=== PATIENT | male | born 1940 | race Caucasian/White ===

== ENCOUNTER 2018-02-17 20:21 | Emergency (ER) | payer MEDICARE, SELFPAY ==
[2018-02-17 20:23] VITALS: BP 152/64; PULSE 65; PULSE 66; RESP 17; RESP 18; TEMP 36.5; O2SAT 94; BMI 24.3
--- NOTE | 2018-02-17 20:34 | RAD_ITS ---
STUDY: X-RAY - LEFT KNEE REASON FOR EXAM: Male, 77 years old. Fall TECHNIQUE: 4 view(s) of the knee. COMPARISON: None. FINDINGS: Normal visualized distal femur. Normal visualized proximal tibia and fibula. Normal proximal tibiofibular articulation. There is mild degenerative arthrosis of the medial femorotibial compartment. There is mild degenerative arthrosis of the lateral femorotibial compartment. There is moderate degenerative arthrosis of the patellofemoral articulation. The soft tissue structures are unremarkable. RAD/Knee 4 or More Views IMPRESSION: Degenerative arthrosis. No fracture or dislocation. Electronically Signed: Luis Chaney DO at 22:16 EDT , Service support ,
--- NOTE | 2018-02-17 20:34 | CT_ITS ---
STUDY: CT BRAIN WITHOUT CONTRAST REASON FOR EXAM: Male, 77 years old. Fall, hit head RADIATION DOSAGE (If Supplied By Facility): CTDIvol = ( 44.99 ) mGy, DLP = ( 846.73 ) mGycm TECHNIQUE: Transaxial CT imaging of the brain was performed without administration of intravenous contrast material. Individualized dose optimization techniques were used for this CT. COMPARISON: None. FINDINGS: Normal soft tissue structures. Normal calvarium. There is mild cerebral atrophy with widening of the extra-axial spaces and ventricular dilatation. There are areas of decreased attenuation within the white matter tracts of the supratentorial brain, consistent with microvascular disease changes. Normal basal ganglia and thalami. Normal brainstem. Normal cerebellum. There is no intracranial hemorrhage. There are no findings of an acute ischemic infarction. Normal visualized paranasal sinuses. CT/Brain/Head without Contrast IMPRESSION: Chronic involutional changes of the brain. No acute intracranial process. Electronically Signed: Luis Chaney DO at 22:10 EDT , Service support ,
--- NOTE | 2018-02-17 20:36 | ED.VISSUMM ---
- ER Visit Summary Date of Service: 02/17/18 Chief Complaint: Head and knee pain History of Present Illness: The patient is a 77 M who was in the kitchen doing dishes when he developed a pain in his knee and fell to the ground. He hit the back of his head. He believes he bent his knee brace on his left knee. 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 Patient notes the knee is painful to move. His orthopedic surgeon who did his right hip at the end of last year is in [place]. Patient is on Coumadin for aortic valve replacement secondary to the aortic dissection. Physical Examination: Afebrile vital signs are stable Gen: Well-nourished well-developed Head: Normocephalic there is a small contusion noted in the occiput Eyes: Perrl EOMI ENT: TMs clear no rhinorrhea moist mucous membranes Neck: Supple no lymphadenopathy no JVD nontender CVS: Regular rate rhythm no murmurs normal S1-S2 Respiratory: No distress clear to auscultation bilaterally chest nontender Abdomen: Soft nontender nondistended normal bowel sounds no masses Back: Nontender Extremity: The left knee shows tenderness over the medial aspect of the knee particularly near the insertion of the MCL. There is minimal swelling. There is no joint effusion. Extensor mechanism is intact. Painful MCL testing. Skin: Normal color no rash Neuro: alert orientated ?3 CN II-XII intact normal strength sensation reflexes gait cerebellar Psych: Normal affect normal mood Test Results: CT the brain and x-rays of the knee were obtained. These were negative for acute. INR was obtained which was 2.9. Emergency Department Course and Treatment: She received Tylenol. We will place him back in his brace and he will use his cane or walker at home. He is to rest the knee and ice it. We will be treating this as a knee sprain/MCL strain. He is to schedule appointment with orthopedic surgeon in [place]. Return if worsening or concerns Impression: 1. Occipital scalp contusion 2. Right MCL strain 3. Coumadin coagulopathy This note was generated with [employer] dictation software. It may contain incorrect words, spelling, and punctuation that were not noted in review of the chart prior to signing ED Disposition - Plan for ED Patient: Disposition: Home or Assisted Living Chief Complaint: Fall Instructions: ED Sprain Knee Collateral Ligaments Additional Instructions: Call your orthopedic surgeon's office to arrange follow-up. Use cane or walker in addition to your brace.
[2018-02-17 21:13] LABS: International Normalized Ratio 2.9; Prothrombin Time (Protime)PT. 30.4 SECONDS (11.7-14.9)
[2018-02-17 23:08] VITALS: RESP 18
[2018-02-17] MEDS: Acetaminophen 500 MG Tablet 1000 MG PO (23:08)
== END 2018-02-17 23:09 | disposition home or self-care (01) ==
PROVIDERS: Emergency Provider Emergency Medicine; Family Provider Family Medicine; PCP Family Medicine
DX: S00.03XA Contusion of scalp, initial encounter (principal); S83.411A Sprain of medial collateral ligament of right knee, initial encounter; W18.30XA Fall on same level, unspecified, initial encounter; Y93.G1 Activity, food preparation and clean up; Y92.9 Unspecified place or not applicable; Z95.2 Presence of prosthetic heart valve; Z79.01 Long term (current) use of anticoagulants; I10 Essential (primary) hypertension; E78.00 Pure hypercholesterolemia, unspecified; Z79.899 Other long term (current) drug therapy
CPT/HCPCS: 70450; 73564; 85610; 99285; A4216

== ENCOUNTER 2018-02-19 21:17 | Emergency (ER) | payer MEDICARE, SELFPAY ==
[2018-02-19 21:17] VITALS: BP 141/64; PULSE 77; RESP 16; TEMP 37; O2SAT 97; BMI 21.7
--- NOTE | 2018-02-19 22:27 | RAD_ITS ---
STUDY: X-RAY - PELVIS REASON FOR EXAM: Male, 77 years old. Pain after fall TECHNIQUE: Two views of the pelvis were obtained. COMPARISON: None. FINDINGS: There is a non-specific bowel gas pattern. There are numerous phleboliths in the pelvis. There are moderate degenerative changes in the lower lumbar spine. There are degenerative changes in both sacroiliac joints. No abnormalities are seen in the visualized superior and inferior pubic rami. Normal appearing pubic symphysis. The visualized ischial tuberosities are unremarkable. There is a prosthesis in the proximal right femur. There is a prosthesis in the right acetabulum. There is adequate alignment of the prostheses. There is cortical disruption in the intertrochanteric region of the left femur. The left acetabulum shows no significant abnormalities. The left hip joint is normal in appearance. RAD/Pelvis 1 or 2 Views IMPRESSION: There is an acute comminuted fracture in the intertrochanteric region of the left femur. Electronically Signed: Monisha Diaz MD at 23:32 EDT Tel Direct: [phone], Service support ,
[2018-02-19] MEDS: fentaNYL 100 MCG/2 ML Ampul 12.5 MCG IV (22:45)
--- NOTE | 2018-02-19 23:01 | NURSING ---
87.5 MCG OF FENTANYL WASTED IN PT'S ROOM. WITNESSED BY Mick NEVES RN
--- NOTE | 2018-02-19 23:01 | RAD_ITS ---
STUDY: X-RAY CHEST REASON FOR EXAM: Male, 77 years old. Pain after fall, preoperative assessment TECHNIQUE: Frontal views of the chest were obtained. COMPARISON: None. FINDINGS: The lungs are hyperinflated. There are no focal airspace opacities. There is no demonstrated pleural abnormality. The cardiac silhouette is normal in size. There are surgical clips in the mediastinum. Sternotomy wires are present. There are prostheses in the aortic and mitral valves. Normal visualized pulmonary arteries. There is atherosclerotic calcification of the thoracic aorta. There are diffuse degenerative changes of the visualized spine. There is dextroscoliosis of the lower thoracic spine. There are old rib fractures on the right. There is no demonstrated abnormality of the visualized upper abdomen. RAD/Chest 1 View (Portable) IMPRESSION: No acute cardiopulmonary abnormalities. Hyperinflation suggests COPD. Electronically Signed: Monisha Diaz MD at 23:29 EDT Tel Direct: [phone], Service support ,
[2018-02-19 23:03] LABS: Absolute Lymphocyte Count 0.43 X10^3/ul (0.83-4.51); Absolute Neutrophil Count 7.8 X10^3/uL (2.0-7.7); Basophil# 0.01 X10^3/uL; Basophil% 0.1 % (0-1); Differential Indicated SCAN CRITERIA MET; Hematocrit 29.6 % (40-54); Hemoglobin 9.8 g/dl (13.0-16.5); Lymphocyte # 0.43 X10^3/ul (4.0); Lymphocyte % 4.8 % (19-41); Mean Corp Hgb Conc 33.1 g/gl (32-36); Mean Corpuscular Hgb 30.3 pg (27.0-32.0); Mean Corpuscular Volume 91.6 fL (80-94); Mean Platelet Vol. 10.1 fl (6.2-12.0); Monocyte# 0.74 X10^3/uL; Monocyte% 8.3 % (0-10); Neutrophil # 7.75 X10^3/uL (2.7-7.7); Neutrophil % 86.6 % (47-70); POSITIVE COUNT NO; POSITIVE DIFFERENTIAL YES; POSITIVE MORPHOLOGY NO; Platelet Count 137 K/mm3 (150-450); RBC Distribution Width CV 14.2 % (11.6-14.6); RBC Distribution Width SD 47.6 fl (35.1-43.9); Red Blood Count 3.23 M/mm3 (4.6-6.2)
[2018-02-19 23:04] LABS: International Normalized Ratio 3.3; Prothrombin Time (Protime)PT. 33.6 SECONDS (11.7-14.9)
--- NOTE | 2018-02-19 23:05 | RAD_ITS ---
STUDY: X-RAY - LEFT FEMUR REASON FOR STUDY: Male, 77 years old. Pain after fall TECHNIQUE: Frontal and lateral views of the femur were obtained. COMPARISON: None. FINDINGS: Bones: There is cortical disruption in the intertrochanteric region of the left femur. Joints: There are moderate degenerative changes in the left knee. Soft tissues: Vascular calcifications are present. RAD/Femur Min 2 Views IMPRESSION: There is an acute comminuted fracture in the intertrochanteric region of the left femur. Electronically Signed: Monisha Diaz MD at 23:34 EDT Tel Direct: [phone], Service support ,
[2018-02-19 23:08] LABS: Anion Gap 8 (5-15); BUN 46 mg/dL (7-18); BUN/Creat Ratio 30.3 RATIO (10-20); Calcium,Total 8.9 mg/dL (8.5-10.1); Chloride 107 mmol/L (98-107); Creatinine, Serum 1.52 mg/dL (0.70-1.30); EST Glomerular Filtration Rate 48 mL/min (>60); Est Glom Filt Rate - Afr Amer 58 mL/min (>60); Glucose 142 mg/dL (74-106); Potassium 5.4 mmol/L (3.5-5.1); Sodium Level 138 mmol/L (136-145)
[2018-02-19 23:22] LABS: Differential Comment SCANNED
[2018-02-19] MEDS: 0.9% Normal Saline 1,000 ML 150 ML IV (23:55)
--- NOTE | 2018-02-20 00:02 | ED.VISSUMM ---
- ER Visit Summary Date of Service: 02/20/18 Chief Complaint: Left leg pain History of Present Illness: The patient is a 77 M who had a fall at home on February 17. Patient was reportedly standing in his kitchen when his knee gave out and he fell. He injured his left knee. He was wearing a leg brace on the left leg at that time. Patient has complained of severe pain in the left knee with movement since the time of his fall. He was seen here the evening of his fall and had a head CT that was negative, left knee x-ray that was negative, and his INR was 2.9. Patient was seen by a PA today at [facility] where cortisone injection was placed in the left knee. Patient and realized tonight that they cannot safely care for him at home as he is not able to even stand and pivot to a bedside commode. Physical Examination: Vital signs are unremarkable. Patient sitting upright in bed no acute distress. Head neck examination reveals no external sign of trauma. Heart is regular rate and rhythm. Mechanical valve click is noted. Lung sounds are clear. Abdomen is soft nontender. Lower extremity examination reveals left thigh edema and tenderness to palpation from the hip through the left knee. He has strong distal pulses. He has decreased range of motion the left leg secondary to pain. Test Results: CBC was a hemoglobin 9.8 and a platelet count of 137,000. Chemistry studies reveal a potassium of 5.4 with hemolysis noted. BUN is 46 and creatinine is 1.52. INR is 3.3. Left femur and pelvis x-rays are obtained. There is an acute comminuted intertrochanteric fracture of the left hip. Chest x-ray reveals hyperinflation with no evidence of acute abnormalities. Emergency Department Course and Treatment: Patient has had problems with hallucinations with opiate medications in the past. He was given a small dose of IV fentanyl here and is resting comfortably. Patient has had a prior hip replacement on the right. Because of his mechanical valves and Coumadin use, that surgery was performed at [facility] where his environmental services aide were nearby. After discussion with patient and , they would prefer to go back to [place] for this injury where his environmental services aide can monitor his heart. Transfer line has been contacted. Treatment Plan: [] Disposition: Transfer Impression: 1. Left intertrochanteric hip fracture 2. 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 It may contain incorrect words, spelling, and punctuation that were not noted in review of the chart prior to signing ED Disposition - Plan for ED Patient: Chief Complaint: Lower Extremity Injury Referrals: Neville Sher MD [Primary Care Provider] -
--- NOTE | 2018-02-20 00:05 | ED.DCSUM_ITS ---
- ER Visit Summary Date of Service: 02/20/18 Chief Complaint: Left leg pain History of Present Illness: The patient is a 77 M who had a fall at home on February 17. Patient was reportedly standing in his kitchen when his knee gave out and he fell. He injured his left knee. He was wearing a leg brace on the left leg at that time. Patient has complained of severe pain in the left knee with movement since the time of his fall. He was seen here the evening of his fall and had a head CT that was negative, left knee x-ray that was negative, and his INR was 2.9. Patient was seen by a PA today at [facility] where cortisone injection was placed in the left knee. Patient and realized tonight that they cannot safely care for him at home as he is not able to even stand and pivot to a bedside commode. Physical Examination: Vital signs are unremarkable. Patient sitting upright in bed no acute distress. Head neck examination reveals no external sign of trauma. Heart is regular rate and rhythm. Mechanical valve click is noted. Lung sounds are clear. Abdomen is soft nontender. Lower extremity examination reveals left thigh edema and tenderness to palpation from the hip through the left knee. He has strong distal pulses. He has decreased range of motion the left leg secondary to pain. Test Results: CBC was a hemoglobin 9.8 and a platelet count of 137,000. Chemistry studies reveal a potassium of 5.4 with hemolysis noted. BUN is 46 and creatinine is 1.52. INR is 3.3. Left femur and pelvis x-rays are obtained. There is an acute comminuted intertrochanteric fracture of the left hip. Chest x-ray reveals hyperinflation with no evidence of acute abnormalities. Emergency Department Course and Treatment: Patient has had problems with hallucinations with opiate medications in the past. He was given a small dose of IV fentanyl here and is resting comfortably. Patient has had a prior hip replacement on the right. Because of his mechanical valves and Coumadin use, that surgery was performed at [facility] where his contact center team lead were nearby. After discussion with patient and , they would prefer to go back to [place] for this injury where his contact center team lead can monitor his heart. Transfer line has been contacted. Treatment Plan: [] Disposition: Transfer Impression: 1. Left intertrochanteric hip fracture 2. 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 It may contain incorrect words, spelling, and punctuation that were not noted in review of the chart prior to signing ED Disposition - Plan for ED Patient: Chief Complaint: Lower Extremity Injury Referrals: Neville Sher MD [Primary Care Provider] -
--- NOTE | 2018-02-20 00:32 | NURSING ---
REPORT CALLED TO CHARLOTTE PRYOR.
[2018-02-20 01:25] VITALS: BP 121/74; PULSE 106; RESP 16
== END 2018-02-20 01:15 | disposition short-term general hospital (02) ==
PROVIDERS: Emergency Provider Emergency Medicine; Family Provider Family Medicine; PCP Family Medicine
DX: S72.142A Displaced intertrochanteric fracture of left femur, initial encounter for closed fracture (principal); W18.30XA Fall on same level, unspecified, initial encounter; Y93.89 Activity, other specified; Y92.000 Kitchen of unspecified non-institutional (private) residence as the place of occurrence of the external cause; Z79.01 Long term (current) use of anticoagulants; Z95.4 Presence of other heart-valve replacement; I10 Essential (primary) hypertension; E78.00 Pure hypercholesterolemia, unspecified; Z79.82 Long term (current) use of aspirin; Z79.899 Other long term (current) drug therapy
CPT/HCPCS: 71045; 72170; 73552; 80048; 85025; 85610; 96361; 96374; 99285; J7030; A4216

== ENCOUNTER 2018-05-18 11:22 | Emergency (ER) | payer MEDICARE, SELFPAY ==
[2018-05-18 11:23] VITALS: BP 130/70; PULSE 61; RESP 18; TEMP 36.1; O2SAT 97; BMI 21.9
--- NOTE | 2018-05-18 12:00 | RAD_ITS ---
STUDY: X-RAY - PELVIS AND RIGHT HIP REASON FOR EXAM: Male, 78 years old. Fall. Right hip pain. TECHNIQUE: Radiological exam, hip, unilateral, with pelvis when performed; 1 view COMPARISON: Pelvis, February 19, 2018. FINDINGS: There is a non-specific bowel gas pattern. Normal visualized soft tissue structures. There are atherosclerotic vascular calcifications. Normal bilateral iliac wings, sacroiliac joints and visualized sacrum. Normal bilateral superior and inferior pubic rami. Normal pubic symphysis. Normal bilateral ischial tuberosities. There is interval internal fixation of the left intertrochanteric fracture seen on the previous study. There is a right artificial hip which appears unchanged in appearance from previous study. The prosthetic components are intact and articulate normally with the child. There is no loosening from the underlying bone. There is no evidence for acute fracture. RAD/Hip 2-3 Views with Pelvis IMPRESSION: 1. Stable right artificial hip without acute abnormality. 2. Interval internal fixation of a left intertrochanteric fracture when compared to the prior exam. 3. Stable appearance of the pelvis. Electronically Signed: Thierno Mejia DO at 12:21 EDT Tel [phone], Service support ,
[2018-05-18 12:32] LABS: International Normalized Ratio 2.9; Prothrombin Time (Protime)PT. 30.3 SECONDS (11.7-14.9)
--- NOTE | 2018-05-18 13:02 | ED.VISSUMM ---
- ER Visit Summary Date of Service: 05/18/18 Chief Complaint: Fall History of Present Illness: The patient is a 78 M with history of bilateral hip replacements. He is on Coumadin. Patient states he lost his balance coming out the front door of his home yesterday and landed on his porch. Right hip was swollen last night. This has somewhat improved after placing ice. He denies striking his head. He has not had a headache. He continues to have pain in the right hip with weightbearing only. Physical Examination: Vital signs are unremarkable. Patient sitting upright in bed in no acute distress. Head neck examination is unremarkable with no sign of trauma. Heart is regular. Valve click is heard. Lung sounds are clear. There is no chest wall tenderness. Abdomen is soft nontender. Right lower extremity examination reveals tenderness of the greater trochanter of the right hip. There is no significant edema at this time. He has full range of motion. There is no overlying ecchymosis. Upper extremity examination was abrasions of the anterior left forearm. Neuro exam is unremarkable. Test Results: Right hip and pelvis x-rays reveal no acute abnormality. Hardware is intact. INR is checked today and is 2.9. Emergency Department Course and Treatment: Left forearm wounds are cleansed and dressed. I am suspicious that he may have had some swelling of the bursal sac that has since improved. At this time I see no evidence of acute injury. Patient will continue his current medication regimen. Treatment Plan: [] Disposition: Discharge Impression: 1. Right hip contusion status post fall This note was generated with [employer] dictation software. It may contain incorrect words, spelling, and punctuation that were not noted in review of the chart prior to signing ED Disposition - Plan for ED Patient: Disposition: Home or Assisted Living Chief Complaint: Fall Instructions: ED Mechanical Fall, ED Contusion Hip Referrals: Neville Sher MD [Primary Care Provider] - As Needed
[2018-05-18 13:22] VITALS: BP 122/69; PULSE 50; RESP 18; O2SAT 97
[2018-05-18 13:23] VITALS: BP 122/69; PULSE 50; RESP 18; O2SAT 97
== END 2018-05-18 13:25 | disposition home or self-care (01) ==
PROVIDERS: Emergency Provider Emergency Medicine; Family Provider Family Medicine; PCP Family Medicine
DX: S70.01XA Contusion of right hip, initial encounter (principal); W18.39XA Other fall on same level, initial encounter; Y93.01 Activity, walking, marching and hiking; Y92.008 Other place in unspecified non-institutional (private) residence as the place of occurrence of the external cause; I10 Essential (primary) hypertension; E78.00 Pure hypercholesterolemia, unspecified; K21.9 Gastro-esophageal reflux disease without esophagitis; Z96.643 Presence of artificial hip joint, bilateral; Z95.2 Presence of prosthetic heart valve; Z79.01 Long term (current) use of anticoagulants; Z79.82 Long term (current) use of aspirin; Z79.899 Other long term (current) drug therapy
CPT/HCPCS: 73502; 85610; 99282

== ENCOUNTER → 2018-07-24 09:37 | Outpatient (CLI) | payer MEDICARE, SELFPAY ==
[2018-07-24 12:00] LABS: Absolute Lymphocyte Count 0.55 X10^3/ul (0.83-4.51); Absolute Neutrophil Count 2.6 X10^3/uL (2.0-7.7); Basophil# 0.04 X10^3/uL; Eosinophil# 0.22 X10^3/uL; Eosinophils% 5.7 % (0-5); Hematocrit 43.8 % (40-54); Hemoglobin 14.3 g/dl (13.0-16.5); Lymphocyte # 0.55 X10^3/ul (4.0); Lymphocyte % 14.2 % (19-41); Mean Corp Hgb Conc 32.6 g/gl (32-36); Mean Corpuscular Hgb 30.2 pg (27.0-32.0); Mean Corpuscular Volume 92.6 fL (80-94); Mean Platelet Vol. 11.2 fl (6.2-12.0); Monocyte% 10.4 % (0-10); Neutrophil # 2.63 X10^3/uL (2.7-7.7); Neutrophil % 68.2 % (47-70); Platelet Count 165 K/mm3 (150-450); RBC Distribution Width CV 15.2 % (11.6-14.6); RBC Distribution Width SD 49.8 fl (35.1-43.9); Red Blood Count 4.73 M/mm3 (4.6-6.2); White Blood Count 3.9 K/mm3 (4.4-11.0)
[2018-07-24 12:02] LABS: Differential Indicated SCAN CRITERIA MET; POSITIVE COUNT NO; POSITIVE DIFFERENTIAL YES; POSITIVE MORPHOLOGY NO
[2018-07-24 12:37] LABS: Anion Gap 8 (5-15); BUN 27 mg/dL (7-18); BUN/Creat Ratio 22.9 RATIO (10-20); Calcium,Total 9.6 mg/dL (8.5-10.1); Chloride 106 mmol/L (98-107); Creatinine, Serum 1.18 mg/dL (0.70-1.30); EST Glomerular Filtration Rate 64 mL/min (>60); Est Glom Filt Rate - Afr Amer 77 mL/min (>60); Glucose 91 mg/dL (74-106); Iron 80 ug/dL (65-175); Potassium 4.5 mmol/L (3.5-5.1); Sodium Level 139 mmol/L (136-145); Thyroid Stim Hormone (TSH) 1.64 uIU/mL (0.358-3.74)
== END ==
PROVIDERS: Family Provider Family Medicine; PCP Family Medicine; Visit Provider Family Medicine
DX: D64.9 Anemia, unspecified (principal); I10 Essential (primary) hypertension; R53.83 Other fatigue
CPT/HCPCS: 36415; 80048; 83540; 84443; 85025

== ENCOUNTER → 2019-01-15 10:57 | Outpatient (CLI) | payer MEDICARE, SELFPAY ==
[2019-01-15 12:21] LABS: Absolute Lymphocyte Count 0.88 X10^3/ul (0.83-4.51); Absolute Neutrophil Count 2.7 X10^3/uL (2.0-7.7); Basophil# 0.02 X10^3/uL; Basophil% 0.5 % (0-1); Eosinophil# 0.34 X10^3/uL; Eosinophils% 7.9 % (0-5); Hematocrit 44.5 % (40-54); Hemoglobin 13.8 g/dl (13.0-16.5); Lymphocyte # 0.88 X10^3/ul (4.0); Lymphocyte % 20.4 % (19-41); Mean Corpuscular Hgb 29.4 pg (27.0-32.0); Mean Corpuscular Volume 94.9 fL (80-94); Monocyte# 0.39 X10^3/uL; Neutrophil # 2.69 X10^3/uL (2.7-7.7); Neutrophil % 62.2 % (47-70); Platelet Count 160 K/mm3 (150-450); RBC Distribution Width CV 14.9 % (11.6-14.6); RBC Distribution Width SD 51.8 fl (35.1-43.9); Red Blood Count 4.69 M/mm3 (4.6-6.2); White Blood Count 4.3 K/mm3 (4.4-11.0)
[2019-01-15 12:30] LABS: POSITIVE COUNT NO; POSITIVE DIFFERENTIAL NO; POSITIVE MORPHOLOGY NO
[2019-01-15 12:50] LABS: Vitamin B12 683 pg/mL (211-911)
[2019-01-17 01:31] LABS: Rapid Plasmin Reagin (RPR) NONREACTIVE (NONREACTIVE)
== END ==
PROVIDERS: Family Provider Family Medicine; PCP Family Medicine; Visit Provider Family Medicine
DX: F03.90 Unspecified dementia, unspecified severity, without behavioral disturbance, psychotic disturbance, mood disturbance, and anxiety (principal)
CPT/HCPCS: 36415; 82607; 84439; 84443; 85025; 86592

== ENCOUNTER → 2019-08-08 10:22 | Outpatient (CLI) | payer MEDICARE, SELFPAY ==
[2019-08-08 12:23] LABS: Absolute Lymphocyte Count 0.82 X10^3/uL (0.83-4.51); Absolute Neutrophil Count 2.4 X10^3/uL (2.0-7.7); Basophil# 0.05 X10^3/uL; Basophil% 1.2 % (0-1); Eosinophil# 0.31 X10^3/uL; Eosinophils% 7.6 % (0-5); Hematocrit 47.3 % (40-54); Lymphocyte # 0.82 X10^3/ul (4.0); Mean Corp Hgb Conc 31.7 g/dL (32-36); Mean Corpuscular Hgb 29.7 pg (27.0-32.0); Mean Corpuscular Volume 93.7 fL (80-94); Mean Platelet Vol. 10.8 fl (6.2-12.0); Monocyte# 0.46 X10^3/uL; Monocyte% 11.2 % (0-10); NRBC Flagged by Analyzer 0 % (0-5); Neutrophil # 2.44 X10^3/uL (2.7-7.7); Neutrophil % 59.8 % (47-70); Platelet Count 142 K/mm3 (150-450); RBC Distribution Width SD 47.9 fl (35.1-43.9); Red Blood Count 5.05 M/mm3 (4.6-6.2); White Blood Count 4.1 K/mm3 (4.4-11.0)
[2019-08-08 13:08] LABS: ALB/GLOB Ratio 1.2 RATIO (0.9-2.4); AST(SGOT) 31 U/L (15-37); Alanine Aminotransfer ALT/SGPT 33 U/L (16-61); Alkaline Phosphatase 59 U/L (45-117); Anion Gap 8 (5-15); BUN 26 mg/dL (7-18); BUN/Creat Ratio 22.6 RATIO (10-20); Calcium,Total 9.6 mg/dL (8.5-10.1); Chloride 107 mmol/L (98-107); Creatinine, Serum 1.15 mg/dL (0.70-1.30); EST Glomerular Filtration Rate 66 mL/min (>60); Est Glom Filt Rate - Afr Amer 79 mL/min (>60); Globulin 3.3 g/dL (2.2-4.2); Glucose 91 mg/dL (74-106); Potassium 4.5 mmol/L (3.5-5.1); Protein, Total 7.3 g/dL (6.4-8.2); Sodium Level 141 mmol/L (136-145); T4 Free Direct 0.79 ng/dL (0.76-1.46); Thyroid Stim Hormone (TSH) 1.74 uIU/mL (0.358-3.74)
== END ==
PROVIDERS: Family Provider Family Medicine; PCP Family Medicine; Visit Provider Family Medicine
DX: E78.5 Hyperlipidemia, unspecified (principal); F03.90 Unspecified dementia, unspecified severity, without behavioral disturbance, psychotic disturbance, mood disturbance, and anxiety; I10 Essential (primary) hypertension
CPT/HCPCS: 36415; 80053; 84439; 84443; 85025

== ENCOUNTER → 2019-11-21 07:48 | Outpatient (CLI) | payer MEDICARE, SELFPAY ==
[2019-11-21 11:42] LABS: International Normalized Ratio 2.5; Prothrombin Time (Protime)PT. 27.3 SECONDS (11.7-14.9)
== END ==
PROVIDERS: Family Provider Family Medicine; PCP Family Medicine; Referring Provider Family Medicine; Visit Provider Family Medicine
DX: Z79.01 Long term (current) use of anticoagulants (principal)
CPT/HCPCS: 36415; 85610

== ENCOUNTER → 2020-01-01 14:09 | Outpatient (CLI) | payer MEDICARE, SELFPAY ==
[2020-01-01 15:34] LABS: Prothrombin Time (Protime)PT. 31.7 SECONDS (11.7-14.9)
== END ==
PROVIDERS: PCP Family Medicine; Visit Provider Family Medicine
DX: Z79.01 Long term (current) use of anticoagulants (principal)
CPT/HCPCS: 36415; 85610

== ENCOUNTER 2020-02-24 15:13 | Outpatient (RCR) | payer MEDICARE, SELFPAY ==
[2020-02-24 17:36] LABS: Prothrombin Time (Protime)PT. 47.6 SECONDS (11.7-14.9)
[2020-02-24 17:53] LABS: International Normalized Ratio 5.1
[2020-02-27 12:25] LABS: International Normalized Ratio 1.4; Prothrombin Time (Protime)PT. 16.3 SECONDS (11.7-14.9)
== END 2020-03-11 18:00 | disposition home or self-care (01) ==
LOC: MTLAB 15:13
PROVIDERS: PCP Family Medicine; Referring Provider Family Medicine; Visit Provider Family Medicine
DX: I35.9 Nonrheumatic aortic valve disorder, unspecified (principal)
CPT/HCPCS: 36415; 85610

== ENCOUNTER 2020-03-17 10:09 | Outpatient (RCR) | payer MEDICARE, SELFPAY ==
[2020-03-17 12:15] LABS: International Normalized Ratio 3.1; Prothrombin Time (Protime)PT. 31.7 SECONDS (11.7-14.9)
== END 2020-03-17 18:00 | disposition home or self-care (01) ==
LOC: MTLAB 10:09
PROVIDERS: PCP Family Medicine; Referring Provider Family Medicine; Visit Provider Family Medicine
DX: I35.9 Nonrheumatic aortic valve disorder, unspecified (principal)
CPT/HCPCS: 36415; 85610

== ENCOUNTER 2020-04-20 10:41 | Outpatient (RCR) | payer MEDICARE, SELFPAY ==
[2020-04-20 12:20] LABS: International Normalized Ratio 3.3; Prothrombin Time (Protime)PT. 33.5 SECONDS (11.7-14.9)
== END 2020-04-20 18:00 | disposition home or self-care (01) ==
LOC: MTLAB 10:41
PROVIDERS: PCP Family Medicine; Referring Provider Family Medicine; Visit Provider Family Medicine
DX: I35.9 Nonrheumatic aortic valve disorder, unspecified (principal)
CPT/HCPCS: 36415; 85610

== ENCOUNTER 2020-09-02 11:28 | Outpatient (RCR) | payer MEDICARE, SELFPAY ==
[2020-09-02 16:26] LABS: International Normalized Ratio 1.4; Prothrombin Time (Protime)PT. 16.5 SECONDS (11.7-14.9)
== END 2020-09-11 23:59 ==
LOC: BFHLAB 11:28
PROVIDERS: PCP Family Medicine; Referring Provider Family Medicine; Visit Provider Family Medicine
DX: I35.9 Nonrheumatic aortic valve disorder, unspecified (principal)
CPT/HCPCS: 36415; 85610

== ENCOUNTER 2020-10-21 21:25 | Emergency (ER) | payer MEDICARE, SELFPAY ==
[2020-10-21 21:26] VITALS: BP 96/78; PULSE 64; PULSE 65; RESP 16; RESP 18; TEMP 36.9; O2SAT 95; O2SAT 96; BMI 24.8
--- NOTE | 2020-10-21 22:10 | RAD_ITS ---
STUDY: X-RAY CHEST REASON FOR EXAM: Male, 80 years old. weakness -- s/p fall TECHNIQUE: Single AP portable view of the chest. 2 images COMPARISON: 02/19/2018 FINDINGS: There are superimposed monitor leads. There is no demonstrated pneumothorax. There is hyperinflation of the lungs consistent with chronic obstructive lung disease (COPD). Linear basilar interstitial changes, likely atelectasis. There is no demonstrated pleural abnormality. Sternal cerclage wires and vascular clips are present from a prior sternotomy, valve replacement and coronary artery bypass graft procedure (CABG). Normal mediastinum and sharif. Normal visualized pulmonary arteries. There is atherosclerotic calcification of the aortic arch with tortuosity. There is demineralization of the osseous structures. There is degenerative osteoarthritis of the bilateral shoulders. Remote rib injuries of the right posterior hemithorax. Partially imaged inferior vena cava filter and presumed cholecystectomy. RAD/Chest 1 View (Portable) IMPRESSION: Stable COPD, postsurgical changes, osteopenia. Minimal atelectasis in the left base. There is no demonstrated pneumothorax. Electronically Signed: Kamla Hickey MD at 23:59 EST , Service support ,
--- NOTE | 2020-10-21 22:10 | CT_ITS ---
STUDY: CT BRAIN WITHOUT CONTRAST REASON FOR EXAM: Male, 80 years old. FELL AT 1400, HIT BACK OF HEAD, ON COUMADIN, PT HAS SEVERE BUNN, PT MENTAL STATUS IS DECREASED RADIATION DOSAGE (If Supplied By Facility): CTDIvol = ( 44.99 ) mGy, DLP = ( 880.47 ) mGycm TECHNIQUE: Transaxial CT imaging of the brain was performed without administration of intravenous contrast material. Individualized dose optimization techniques were used for this CT. COMPARISON: CT brain noncontrast 02/17/2018. FINDINGS: Normal soft tissue structures. Normal calvarium. There is an acute intracranial hemorrhage in the left subdural space with a width of 1.4 cm, right frontal subdural hemorrhage and 0.4 cm, significant hemorrhage along the right greater than left falx, right with at least 1.2 cm. There is significant mass effect on the left cerebrum with shift to the right by 1.2 cm to 1.3 cm. The right ventricle is narrowed as well. The basilar cisterns are patent. No overt intraparenchymal or intraventricular hemorrhage. Normal basal ganglia and thalami. Normal brainstem. Normal cerebellum. There are no findings of an acute ischemic infarction. Normal visualized paranasal sinuses. The bilateral mastoid air cells and ossicles are unopacified. 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 CT/Brain/Head without Contrast IMPRESSION: Extensive extra-axial hemorrhages in the subdural spaces left greater than right with shift to the right as above. These findings were discussed on the telephone with Dr. BHATIA at 0010 hrs. EST on 10/22/2020. Electronically Signed: Kamla Hickey MD at 0:15 EST , Service support ,
--- NOTE | 2020-10-21 22:10 | ED.DCSUM_ITS ---
History of Present Illness <Real Onofre - Last Filed: 10/22/20 00:03> Onset: Today Narrative: 80-year-old male presenting with headache after mechanical fall happened today at 2 PM. Patient is on Coumadin chronically. He states he did not lose consciousness. He presents to the ER several hours after falling hitting his head. He states that he just feels lousy and he has a headache. He states he has not had any fever, chills, nausea, vomiting. He has no exposure to COVID- 19. <DiazNiravJaxon - Last Filed: 10/22/20 00:51> Chief Complaint: Head Injury Past Medical History <Real Onofre - Last Filed: 10/22/20 00:03> Past Medical History: - - Hyperlipidemia, hypertension Surgical History: noncontributory Lives: Spouse/ Significant Other Smoking Status: Never smoker Alcohol: None Drugs: None <DiazNiravJaxon - Last Filed: 10/22/20 00:51> - Allergies and Home Meds Allergies/Adverse Reactions: Allergies No Known Allergies Allergy (Verified 05/18/18 11:25) Primary Care Physician: Neville Sher MD [Primary Care Provider] - Review of Systems General: Denies: Chills, Fever, Sweats Eyes: Denies: Visual changes - bilaterally, Diplopia ENT: Denies: Rhinorrhea, Sore throat Cardiovascular: Denies: Chest pain, Palpitations Respiratory: Denies: Dyspnea, Cough, Dyspnea on exertion Genitourinary: Denies: Dysuria, Hematuria, Frequency Musculoskeletal: Denies: Back pain, Extremity Pain Skin: Denies: Rash, Wounds Neurological: Reports: Headache. Denies: Parasthesia, Numbness Psych: Denies: Depression, Anxiety <DiazNiravJaxon - Last Filed: 10/22/20 00:51> Physical Exam Vital Signs/Narrative: Vital Signs Temp Pulse Resp BP Pulse Ox 10/21/20 21:26 98.5 F 64 16 96/78 95 <Real Onofre - Last Filed: 10/22/20 00:03> Vital Signs/Narrative: Vital Signs Temp Pulse Resp BP Pulse Ox 10/21/20 21:26 98.5 F 64 16 96/78 95 General: Well nourished, No Acute Distress Head: Normocephalic, Atraumatic Eyes: Perrl, EOMI. Negative for: Pale conjunctiva ENT: Moist mucous membranes. Negative for: No rhinorrhea Cardiovascular: Regular rate, Regular rhythm Respiratory: No distress, CTA bilaterally Abdomen: Soft, Nontender Back: Nontender Extremities: Nontender, No edema Skin: Normal color, No rash. Negative for: Diaphoresis, Pallor Neurological: Alert, Oriented x3, Cranial nerves II-XII grossly intact Psychological: Agitated <Jaxon Bhatia - Last Filed: 10/22/20 00:51> Diagnostic/Tx/Re-eval - Medical Decision Making Patient returned from radiology suite. He is no longer verbal. He is not moving his right side. Occasionally spasm noted of the quadricep muscle and attempt to move right hand. GCS is 10. He does localize to pain on the left side only. Patient received 20 of etomidate and rocuronium. He was easily orotracheally debated with a 7.5 endotracheal tube using glide scope. This was performed successfully on first pass. Breath sounds noted bilaterally, but diminished. Appropriate color change on capnometer. Khoury was ordered, OG was ordered. Dr. Bhatia is speaking with the trauma service at [facility] where relatives wanted him transferred since he had coronary bypass surgery. Because of the rapid deterioration patient received mannitol 1 g/kg. Patient did receive 10 mg of vitamin K IV push. Kcentra was ordered with the presumption his INR is less than 4. Helicopter was contacted. Procedure: 1. Rapid sequence intubation using glide scope, 7.5 [place] endotracheal tube 2. Khoury indwelling for accurate I's and O's 3. OG per nursing staff for decompression of stomach <Real Onofre - Last Filed: 10/22/20 00:03> Clinical Impression(s) from Imaging Studies Brain CT 10/21/20 22:10 IMPRESSION: Extensive extra-axial hemorrhages in the subdural spaces left greater than right with shift to the right as above. These findings were discussed on the telephone with Dr. BHATIA at 0010 hrs. EST on 10/22/2020. Electronically Signed: Kamla Hickey MD at 0:15 EST , Service support , Chest X-Ray 10/21/20 22:10 IMPRESSION: Stable COPD, postsurgical changes, osteopenia. Minimal atelectasis in the left base. There is no demonstrated pneumothorax. Electronically Signed: Kamla Hickey MD at 23:59 EST , Service support , Laboratory Data 10/21/20 10/21/20 10/21/20 23:16 23:23 23:23 WBC 9.2 RBC 4.47 L Hgb 13.9 Hct 41.6 MCV 93.1 MCH 31.1 MCHC 33.4 RDW Std Deviation 46.8 H RDW Coeff of Giselle 13.7 Plt Count 151 MPV 10.3 Immature Gran % (Auto) 0.400 Neut % (Auto) 79.7 H Lymph % (Auto) 8.0 L [place] % (Auto) 8.4 Eos % (Auto) 2.8 Baso % (Auto) 0.7 Absolute Neuts (auto) 7.3 Absolute Lymphs (auto) 0.73 L Nucleated RBC % 0 PT INR APTT Sodium 143 Potassium 3.8 Chloride 111 H Carbon Dioxide 28.0 Anion Gap 4 L BUN 27 H Creatinine 1.16 Estim Creat Clear Calc 61.02 Est GFR (MDRD) Af Amer 78 Est GFR (MDRD) Non-Af 65 BUN/Creatinine Ratio 23.3 H Glucose 110 H Calcium 9.2 Urine Color Yellow Urine Clarity Clear Urine pH 6.5 Ur Specific [place] 1.015 Urine Protein Negative Urine Glucose (UA) Normal Urine Ketones Negative Urine Occult Blood 10 H Urine Nitrite Negative Urine Bilirubin Negative Urine Urobilinogen Normal Ur Leukocyte Esterase Negative Urine RBC 0 SEEN Urine WBC 0 SEEN Ur Squamous Epith Cells 0 SEEN Urine Bacteria 0 SEEN Urine Mucus 0 SEEN Ethyl Alcohol 10/21/20 10/21/20 23:25 23:55 WBC RBC Hgb Hct MCV MCH MCHC RDW Std Deviation RDW Coeff of Giselle Plt Count MPV Immature Gran % (Auto) Neut % (Auto) Lymph % (Auto) [place] % (Auto) Eos % (Auto) Baso % (Auto) Absolute Neuts (auto) Absolute Lymphs (auto) Nucleated RBC % PT 27.6 H INR 2.6 APTT 29.7 Sodium Potassium Chloride Carbon Dioxide Anion Gap BUN Creatinine Estim Creat Clear Calc Est GFR (MDRD) Af Amer Est GFR (MDRD) Non-Af BUN/Creatinine Ratio Glucose Calcium Urine Color Urine Clarity Urine pH Ur Specific [place] Urine Protein Urine Glucose (UA) Urine Ketones Urine Occult Blood Urine Nitrite Urine Bilirubin Urine Urobilinogen Ur Leukocyte Esterase Urine RBC Urine WBC Ur Squamous Epith Cells Urine Bacteria Urine Mucus Ethyl Alcohol < 3.0 - Rhythm Strip Rhythm Strip: Sinus Rhythm Rate: 74 - EKG Initial EKG Interpretation: Sinus Rhythm, No Acute Injury Pattern, AV Block - First-degree - Medical Decision Making Patient presents with normal mental status after hitting his head several hours ago. His exam was fairly unremarkable except for he did seem slightly confused and angry. There were no visual signs of trauma. Patient had labs and imaging ordered. His initial EKG is sinus rhythm with first-degree AV block without any ischemic changes as interpreted by myself. Chest x-ray shows no acute process as read by the radiologist and myself. After patient returned from CT he was acutely altered with a GCS of 10. I did review the CT prior to radiology read and noted that there is a large areas of subdural hematoma. Given the patient is acutely altered I did elect to intubate the patient. See procedure note above. Discussed with [facility] who accepted trauma transfer by . Impression: 1. Mechanical fall 2. Acute subdural hemorrhage - Critical Care Time Critical care time (excluding procedures): 30-74 minutes, Discussing w/Patient &/or Family/Shift Superintendent, Discussing w/Consultants, Arranging Admission or Transfer, Performing Direct Patient Care at Bedside <Jaxon Bhatia - Last Filed: 10/22/20 00:51> ED Disposition <Real Onofre - Last Filed: 10/22/20 00:03> <Jaxon Bhatia - Last Filed: 10/22/20 00:51> - Plan for ED Patient: Referrals: Neville Sher MD [Primary Care Provider] -
--- NOTE | 2020-10-21 22:11 | EKG12_ITS ---
Test Reason : DYSRHYTHMIA Blood Pressure : / mmHG Vent. Rate : 074 BPM Atrial Rate : 074 BPM P-R Int : 230 ms QRS Dur : 138 ms QT Int : 430 ms P-R-T Axes : 082 -17 051 degrees QTc Int : 477 ms Sinus rhythm with 1st degree A-V block Non-specific intra-ventricular conduction block Abnormal ECG Confirmed by BLOSSOM YIP, LUIS ([id number]), editor book DANA MURPHY ([id number]) on 10/22/2020 2:18:00 PM Referred By: TEMO Confirmed By:LUIS CERRATO MD
[2020-10-21 23:23] LABS: Bacteria 0 SEEN /hpf (None Seen); Color, Urine Yellow (Yellow); Glucose, Dipstick Normal (Normal); Ketone-Dipstick Negative (Negative); Leukocyte Esterase-Dipstick Negative /ul (Negative); Mucous, Urine 0 SEEN /hpf (<or=2+); Nitrite-Dipstick Negative (Negative); Occult Blood-Urine 10 /ul (Negative); Protein-Dipstick Negative (Negative); Red Blood Cells-Urine 0 SEEN /hpf (0-5); Specific Gravity, Urine 1.015 (1.002-1.030); Squamous Epithelial Cells - UA 0 SEEN /hpf (0-5); Urine Bilirubin Dipstick Negative (Negative); Urine Clarity Clear (Clear); Urine Urobilinogen Normal (Normal); Urine pH 6.5 (5.0 - 8.0); White Blood Cells 0 SEEN /hpf (0-5)
[2020-10-21 23:43] LABS: Absolute Lymphocyte Count 0.73 X10^3/uL (0.83-4.51); Absolute Neutrophil Count 7.3 X10^3/uL (2.0-7.7); Basophil# 0.06 X10^3/uL; Basophil% 0.7 % (0-1); Eosinophil# 0.26 X10^3/uL; Eosinophils% 2.8 % (0-5); Hematocrit 41.6 % (40-54); Hemoglobin 13.9 g/dL (13.0-16.5); Lymphocyte # 0.73 X10^3/ul (4.0); Mean Corp Hgb Conc 33.4 g/dL (32-36); Mean Corpuscular Hgb 31.1 pg (27.0-32.0); Mean Corpuscular Volume 93.1 fL (80-94); Mean Platelet Vol. 10.3 fl (6.2-12.0); Monocyte# 0.77 X10^3/uL; Monocyte% 8.4 % (0-10); NRBC Flagged by Analyzer 0 % (0-5); Neutrophil # 7.32 X10^3/uL (2.7-7.7); Neutrophil % 79.7 % (47-70); Platelet Count 151 K/mm3 (150-450); RBC Distribution Width CV 13.7 % (11.6-14.6); RBC Distribution Width SD 46.8 fl (35.1-43.9); Red Blood Count 4.47 M/mm3 (4.6-6.2); White Blood Count 9.2 K/mm3 (4.4-11.0)
[2020-10-21 23:44] LABS: Anion Gap 4 (5-15); BUN 27 mg/dL (7-18); BUN/Creat Ratio 23.3 RATIO (10-20); Calcium,Total 9.2 mg/dL (8.5-10.1); Chloride 111 mmol/L (98-107); Creatinine, Serum 1.16 mg/dL (0.70-1.30); EST Glomerular Filtration Rate 65 mL/min (>60); Est Glom Filt Rate - Afr Amer 78 mL/min (>60); Estimated Creatinine Clearance 61.02 ml/min; Glucose 110 mg/dL (74-106); Potassium 3.8 mmol/L (3.5-5.1); Sodium Level 143 mmol/L (136-145)
[2020-10-21] MEDS: levETIRAcetam IV 1,000 MG/100 ML BAG 400 MG IV (23:48)
[2020-10-21] MEDS: Etomidate 20 MG/10 ML Vial IV (23:50)
[2020-10-21] MEDS: Rocuronium Bromide 50 MG/5 ML Vial 82 MG IV (23:50)
[2020-10-21 23:52] VITALS: PULSE 76; RESP 14; O2SAT 99
--- NOTE | 2020-10-22 | RAD_ITS ---
STUDY: X-RAY CHEST REASON FOR EXAM: Male, 80 years old. et and og tube placements TECHNIQUE: Single AP portable view of the chest. 2 images COMPARISON: 10/21/2020 2331 FINDINGS: The endotracheal tube tip is approximately 7.5 cm superior to the shalini. Enteric tubes tip in distal sidehole of the gastric body and antrum. There is hyperinflation of the lungs consistent with chronic obstructive lung disease (COPD). There is interstitial prominence. Probable atelectasis in the left base. There is no demonstrated pleural abnormality. Sternal cerclage wires and vascular clips are present from a prior sternotomy, valve replacement and coronary artery bypass graft procedure (CABG). There is borderline cardiac size. Normal mediastinum and sharif. Normal visualized pulmonary arteries. There is atherosclerotic calcification of the aortic arch with tortuosity. There is demineralization of the osseous structures. Normal visualized ribs, clavicles, and shoulders. Partially imaged retrievable IVC filter. RAD/Chest 1 View (Portable) IMPRESSION: Lines as above, in good position. Interstitial lung disease, atelectasis, no pneumothorax or confluent pneumonia detected. There is borderline cardiac size. Other nonacute findings as outlined above. Electronically Signed: Kamla Hickey MD at 0:54 EST , Service support ,
[2020-10-22 00:05] LABS: International Normalized Ratio 2.6; Prothrombin Time (Protime)PT. 27.6 SECONDS (11.7-14.9)
[2020-10-22] MEDS: Propofol 10MG/Ml 1,000 MG/100 ML Bottle 5.3 MG CONT INF (00:05)
[2020-10-22 00:06] LABS: Partial Thromboplast Time 29.7 Seconds (24.1-36.2)
[2020-10-22 00:08] VITALS: BP 125/96; PULSE 80; RESP 14; TEMP 35.8; O2SAT 100
[2020-10-22 00:17] VITALS: BP 113/96; PULSE 81; RESP 14; TEMP 35.8; O2SAT 97
[2020-10-22 00:22] LABS: Alcohol, Blood (Medical)-Serum < 3.0 mg/dL
[2020-10-22] MEDS: Mannitol 50gm/250ml 50 GM in Premixed Bag 1 BAG IV (00:36)
[2020-10-22 00:47] VITALS: BP 183/82; PULSE 82; RESP 14; TEMP 35.7; O2SAT 98
[2020-10-22 01:25] VITALS: BP 183/82; PULSE 84; RESP 14; TEMP 35.7; O2SAT 98
== END 2020-10-22 01:15 | disposition short-term general hospital (02) ==
PROVIDERS: Emergency Medicine; Emergency Provider Student in an Organized Health Care Education/Training Program; PCP Family Medicine
DX: I62.01 Nontraumatic acute subdural hemorrhage (principal); E78.5 Hyperlipidemia, unspecified; I10 Essential (primary) hypertension; Z79.01 Long term (current) use of anticoagulants; Z79.82 Long term (current) use of aspirin; Z79.899 Other long term (current) drug therapy
CPT/HCPCS: 31500; 31720; 51702; 70450; 71045; 80048; 80320; 81001; 85025; 85610; 85730; 87426; 93005; 94002; 96365; 96366; 96367; 96375; 99251; 99285; C9132; J7030; J7050; A4216; G0463; G0480; J3490